=== PATIENT | female | born 1995 | race Caucasian/White ===

== ENCOUNTER 2021-05-18 21:09 | Emergency (ER) | payer OTHER ==
[~2021-05-18] VITALS: Ht 157.5 cm; Wt 65.8 kg
[~2021-05-18 21:09] MED LIST: ATIVAN1 MG PO; LEXAPRO 10 MG T10 M1; PERCOCET 5-3251 EACH PO; TRINESSA1 EACH; VENTOLIN HFA 1818 GM INH
[2021-05-18 22:06] LABS: URINE BILIRUBIN NEGATIVE (Negative); URINE BLOOD NEGATIVE (Negative); URINE CLARITY CLOUDY; URINE COLOR YELLOW; URINE GLUCOSE-RANDOM NEGATIVE (Negative); URINE KETONES NEGATIVE (Negative); URINE LEUKOCYTES TRACE (Negative); URINE NITRITE NEGATIVE (Negative); URINE PROTEIN NEGATIVE (Negative); URINE SPECIFIC GRAVITY 1.015 (1.005-1.030); URINE UROBILINOGEN 0.2 E.U./dl (0.2-1.0)
[2021-05-18 22:15] LABS: BACTERIA 1-9 Few /HPF (None Seen); CASTS None Seen /LPF (None Seen); MUCUS 0-3 Light strn/LPF (None Seen); SQUAMOUS >10 Many /LPF (0-3); URINE RBC 0-2 Rare /HPF (0-2); URINE WBC 0-5 Rare /HPF (0-5)
[2021-05-18 22:16] LABS: AMORPHOUS PHOSPHATES Few /LPF (None Seen)
[2021-05-18 23:20] VITALS: BP 112/62
== END 2021-05-18 23:20 | disposition home or self-care (01) ==
LOC: M.ERS 21:09
PROVIDERS: Physician Assistant
DX: R42 Dizziness and giddiness (principal); J45.909 Unspecified asthma, uncomplicated; V49.40XA Driver injured in collision with unspecified motor vehicles in traffic accident, initial encounter; Y93.89 Activity, other specified; Y92.89 Other specified places as the place of occurrence of the external cause; Y99.8 Other external cause status